=== PATIENT | male | born 1990 | race Caucasian/White ===

== ENCOUNTER 2016-04-11 | Emergency (ER) | payer BC ==
--- NOTE | 2016-04-11 21:24 | ED ---
Skin/Abscess/FB HPI - General Chief complaint: Skin/Abscess/Foreign Body Stated complaint: abdominal pain Time Seen by Provider: 04/11/16 20:27 Source: patient Mode of arrival: ambulatory Limitations: no limitations - History of Present Illness Initial comments: Patient is a 25-year-old male presenting to the emergency department with complaints of abscess to his abdomen. Patient states he's had a small hard pimple on his abdomen for approximately one year but over the last 2 days it has become red and inflamed and painful. Patient states he's tried to squeeze it but no drainage comes out. Patient currently rates pain 5 out of 10. Patient denies history of MRSA. Patient denies recent illness, fevers, nausea, vomiting, shortness of breath, chest pain, severe abdominal pain, diarrhea or constipation. Patient denies history of same. Patient states he is up-to-date on tetanus immunization. Patient states he took some Motrin at home with minimal relief prior to arrival. MD complaint: abscess/boil Tetanus Up to Date: yes Treatments Prior to Arrival: attempted to drain pus at home - Related Data Previous Rx's Medication Instructions Recorded Cephalexin [Keflex] 500 mg PO Q12HR #20 cap 04/11/16 HYDROcodone/APAP 5-325MG [Gerlach 1 tab PO Q4HR PRN #20 tab 04/11/16 5-325] Allergies Allergy/AdvReac Type Severity Reaction Status Date / Time No Known Allergies Allergy Verified 04/11/16 20:04 Review of Systems ROS Statement: Those systems with pertinent positive or pertinent negative responses have been documented in the HPI. ROS Other: All systems not noted in ROS Statement are negative. Past Medical History Past Medical History: No Reported History History of Any Multi-Drug Resistant Organisms: None Reported Past Surgical History: No Surgical Hx Reported Past Psychological History: No Psychological Hx Reported Smoking Status: Current every day smoker Past Alcohol Use History: None Reported Past Drug Use History: None Reported General Exam Limitations: no limitations General appearance: alert, in no apparent distress Head exam: Present: atraumatic, normocephalic, normal inspection Eye exam: Present: normal appearance, PERRL, EOMI. Absent: scleral icterus, conjunctival injection, periorbital swelling ENT exam: Present: normal exam, mucous membranes moist Neck exam: Present: normal inspection. Absent: tenderness, meningismus, lymphadenopathy Respiratory exam: Present: normal lung sounds bilaterally. Absent: respiratory distress, wheezes, rales, rhonchi, stridor Cardiovascular Exam: Present: regular rate, normal rhythm, normal heart sounds. Absent: systolic murmur, diastolic murmur, rubs, gallop, clicks GI/Abdominal exam: Present: soft, tenderness (Tenderness to area of cyst left lower quadrant), normal bowel sounds Extremities exam: Present: normal inspection Neurological exam: Present: alert, oriented X3, normal gait Psychiatric exam: Present: normal affect, normal mood Skin exam: Present: warm, dry, intact, other (Small area of induration approximately 2 x 2 centimeters to left lower quadrant without fluctuation with pimple-like head with minimal cellulitis) Course Vital Signs 04/11/16 20:04 Temperature 98.4 F Pulse Rate 99 Respiratory 18 Rate Blood Pressure 150/84 O2 Sat by Pulse 99 Oximetry Procedures - Incision & Drainage Consent Obtained: verbal consent Site: abdomen (Left lower quadrant) Size (cm): 2 Anesthetic Used: lidocaine 1% Amount (mLs): 2 I&D Cleaning Method: Betadine Sterile Field Used?: Yes Scalpel Used: #11 Needle Aspiration Performed?: No Irrigation Performed?: Yes I&D Drainage Obtained: Pus, Blood Packing: Plain Patient Tolerated Procedure: well, no complications Medical Decision Making - Medical Decision Making Infected sebaceous cyst. Incision and drainage performed. Patient placed on Keflex for empiric coverage. Wound care instructions provided. Patient instructed to follow-up with primary care physician in one to 2 days for wound evaluation. Patient agrees with treatment plan. Discharge instructions and return parameters reviewed. Disposition Clinical Impression: Infected sebaceous cyst of skin Disposition: HOME SELF-CARE Condition: Good Instructions: Abscess Incision and Drainage (ED), Cyst (ED) Additional Instructions: Warm moist compresses to area 3 times daily daily, finish oral antibiotics as prescribed, since packing every 2-4 days but change the outer dressing more often depending on drainage, monitor for decrease in redness and size of the wound, follow up with Dr. Lisa in 24-48 hours. May take Tylenol or Gerlach for pain as needed. Please return to the emergency department if symptoms do not improve or get worse. Prescriptions: Cephalexin [Keflex] 500 mg PO Q12HR #20 cap HYDROcodone/APAP 5-325MG [Gerlach 5-325] 1 tab PO Q4HR PRN #20 tab PRN Reason: Pain Referrals: Osmani Lisa DO [Primary Care Provider] - 1-2 days Time of Disposition: 21:23
== END 2016-04-11 21:32 | disposition home or self-care (01) ==
CPT/HCPCS: 10060; 99283

== ENCOUNTER 2020-04-13 07:59 | Emergency (ER) | payer BC ==
[2020-04-13 08:07] VITALS: BP 146/82; PULSE 104; RESP 18; TEMP 98.1
[2020-04-13] MEDS ORDERED: FLUORESCEIN STRIPS 1 MG STRIP LEFT EYE ONE (08:20)
[2020-04-13] MEDS ORDERED: PROPARACAINE 0.5% OPHTH DROPS 15 ML BTL RIGHT EYE STA (08:20)
[2020-04-13] MEDS ORDERED: traMADol 50 MG STARTER PACK 3 TAB BTL PO STA (08:52)
--- NOTE | 2020-04-13 08:52 | ED ---
Eye Problem HPI - General Chief complaint: Eye Problems Stated complaint: eye pain/burning Time Seen by Provider: 04/13/20 08:15 Source: patient Mode of arrival: ambulatory Limitations: no limitations - History of Present Illness Initial comments: Patient is a 29-year-old male presenting to emergency Department with complaints of bilateral eye pain 6 hours. Patient states he was at work and came in contact with a UV sanitizing light. He states he had it close to him for about 20 seconds, at about 4pm until he realized what it was. Patient states he didn't notice any discomfort until about 6 hours ago, at 2 AM in the morning. Patient states he had an onset of feeling like his eyes were dry and then the burning sent in. He also noticed mild redness around the outside of both eyes as well. Patient states he tried Visine without relief. Patient then decided to be seen in the ER. He states he wears glasses, no contacts. He denies any oth er injuries to his eyes. He has no further complaints at this time. - Related Data Previous Rx's Medication Instructions Recorded Erythromycin Ophth Oint [Romycin 1 applic BOTH EYES QID 5 Days #1 04/13/20 Ophth Oint] tube Allergies Allergy/AdvReac Type Severity Reaction Status Date / Time No Known Allergies Allergy Verified 04/13/20 08:44 Review of Systems ROS Statement: Those systems with pertinent positive or pertinent negative responses have been documented in the HPI. ROS Other: All systems not noted in ROS Statement are negative. Past Medical History Past Medical History: Asthma History of Any Multi-Drug Resistant Organisms: None Reported Past Surgical History: No Surgical Hx Reported Past Psychological History: No Psychological Hx Reported Smoking Status: Current every day smoker Past Alcohol Use History: Occasional Past Drug Use History: Marijuana General Exam - General Exam Comments Initial Comments: GENERAL: Patient is well-developed and well-nourished. Patient is nontoxic and in no acute distress. HEAD: Atraumatic, normocephalic. EYES: Pupils equal round and reactive to light, extraocular movements intact, sclera anicteric. Eyelids were unremarkable. Bilateral injected conjunctivae, F luorescein stain revealed very tiny small uptakes around the cornea bilateral, no other acute findings. Visual acuity is slightly decreased however he does were glasses and he does not have them with him. ENT: TMs normal, nares patent, oropharynx clear without exudates. Moist mucous membranes. NECK: Normal range of motion, supple without lymphadenopathy or JVD. LUNGS: Unlabored respirations. Breath sounds clear to auscultation bilaterally and equal. No wheezes rales or rhonchi. HEART: Regular rate and rhythm without murmurs, rubs or gallops. ABDOMEN: Soft, nontender, normoactive bowel sounds. No guarding, no rebound. No masses appreciated. : Deferred MUSCULOSKELETAL: Normal extremities with adequate strength and normal range of motion, no pitting or edema. No clubbing or cyanosis. NEUROLOGICAL: Patient is alert and oriented x 3. Symmetrical smile. Normal speech, normal gait. PSYCH: Normal mood, normal affect. SKIN: Warm, Dry, normal turgor, no rashes or lesions noted. Limitations: no limitations Course Vital Signs 04/13/20 08:03 Temperature 98.1 F Pulse Rate 104 H Respiratory 18 Rate Blood Pressure 146/82 O2 Sat by Pulse 99 Oximetry Medical Decision Making - Medical Decision Making Patient is a 29-year-old male presenting with bilateral ear pain 6 hours. Patient had about 20sec exposures to a UV sanitizing light at work at approximate 4 PM today evening. Fluorescein stain exam reveals very tiny puncture in uptake around the cornea, no other acute findings. Proparacaine drops did decrease his pain. I recommended lubricating eyedrops, antibiotic ointment, alternating Tylenol Motrin for discomfort. He is to follow-up with ophthalmology tomorrow. Patient is in agreement with this plan of care. He is stable for discharge. He is discussed with Dr. Colunga. Disposition Clinical Impression: Photokeratitis of both eyes Disposition: HOME SELF-CARE Condition: Stable Instructions (If sedation given, give patient instructions): Corneal Flash Ortiz (ED) Additional Instructions: Please return to the Emergency Department if symptoms worsen or any other concerns. Use lubricating eyedrops, antibiotic ointment as discussed. Alternate between Tylenol and Motrin for any discomfort, may use tramadol for severe pain. Follow up with ophthalmology tomorrow. Prescriptions: Erythromycin Ophth Oint [Romycin Ophth Oint] 1 applic BOTH EYES QID 5 Days #1 tube Is patient prescribed a controlled substance at d/c from ED?: No Referrals: Osmani Lisa DO [Primary Care Provider] - 1-2 days Russell Huggins MD [STAFF PHYSICIAN] - 1-2 days
== END 2020-04-13 09:09 | disposition home or self-care (01) ==
LOC: EC 07:59
DX: H16.133 Photokeratitis, bilateral (principal); F17.200 Nicotine dependence, unspecified, uncomplicated; W89.8XXA Exposure to other man-made visible and ultraviolet light, initial encounter; Y92.69 Other specified industrial and construction area as the place of occurrence of the external cause; Y99.0 Civilian activity done for income or pay
CPT/HCPCS: 99283